=== PATIENT | male | born 2000 | race Caucasian/White ===

== ENCOUNTER 2021-04-07 17:06 | Emergency (ER) | payer SELFPAY ==
[2021-04-07 17:27] VITALS: BP 110/71; PULSE 88; RESP 16; TEMP 36.9; O2SAT 100
--- NOTE | 2021-04-07 20:31 | PC.NURSE ---
Patient's named called multiple times in triage, no response.
== END 2021-04-07 20:31 | disposition left against medical advice (07) ==
LOC: ANHED 20:44
DX: R21 Rash and other nonspecific skin eruption (principal)
CPT/HCPCS: 99199

== ENCOUNTER 2021-07-26 00:26 | Emergency (ER) | payer SELFPAY ==
[2021-07-26 00:34] VITALS: BP 136/85; PULSE 102; RESP 17; TEMP 36.8; O2SAT 99
--- NOTE | 2021-07-26 00:50 | ED.ABDPAIN ---
HPI - Abdominal Pain General Chief Complaint: Abdominal Pain Stated Complaint: right abd pain x 2 days Time Seen by Provider: 07/26/21 00:30 Source: patient and RN notes reviewed Mode of arrival: ambulatory Limitations: no limitations History of Present Illness HPI narrative: This is a 20 year old male who presents for evaluation of right flank pain. He developed epigastric abdominal pain 2 days ago, and now his pain has moved to his right abdomen. He is concerned he may have acute appendicitis. He is also complaining of right buttock pain. He denies nausea, vomiting, fever, chills, diarrhea, dysuria, hematuria or testicular pain. He has not taken anything for pain. Related Data Allergies Allergy/AdvReac Type Severity Reaction Status Date / Time No Known Allergies Allergy Verified 07/26/21 00:39 Review of Systems Review of Systems: All systems reviewed & are unremarkable except as noted in HPI and below PMFSH Past Medical History Medical History (Updated 07/26/21 @ 01:18 by Jayde Ortega MD) Patient denies medical problems Surgical History Surgical History (Updated 07/26/21 @ 00:51 by Jayde Ortega MD) Hx of tonsillectomy Social History Social History (Updated 07/26/21 @ 00:51 by Jayde Ortega MD) Smoking packs per day: 0.5 Smoking cigarettes per day: 10.0 Smoking status: Current every day smoker Alcohol intake: never Substance use: current Substance use type: marijuana Exam Const: General: alert Orientation/consciousness: patient oriented x3 Eyes: EOM: EOMs intact bilaterally Chest: Chest palpation & inspection: normal inspection of the chest Resp: Effort & Inspection: normal respiratory effort and no retractions Auscultation: clear to auscultation bilaterally Cardio: Rate: regular rate Rhythm: regular rhythm Heart sounds: no murmurs GI: GI Palp: Yes Soft to palpation, Yes Tenderness to palpation present (GI) (RLQ, right lower back) and No Guarding due to palpation present (GI) Auscultation: normal bowel sounds Back/Spine/Pelvis: Back: no CVA tenderness Skin: General skin exam: normal color Rashes: no rashes Neuro: General: patient oriented x3, moves all extremities and CN's II-XI intact bilaterally Extrem: General: normal to inspection Psych: Mental Status: mental status grossly normal Affect: normal affect Course Reevaluation(s) Reevaluation #1: Patient refused IV and labs draw to be done. I spoke to patient and I explained he needs these things to be done to rule out appendicitis. I explained risk of refusal to complete testing to rule out appendicitis. I Discussed risk of , sepsis, worsening infection. He initially agreed to but now he is refusing again. He is signing AMA. Date: 07/26/21 Time: 01:16 Vital Signs Vital signs: Vital Signs Temperature 98.3 F 07/26/21 00:34 Pulse Rate 102 H 07/26/21 00:34 Respiratory Rate 17 07/26/21 00:34 Blood Pressure 136/85 07/26/21 00:34 Pulse Oximetry 99 07/26/21 00:34 Temperature 98.3 F 07/26/21 00:34 Pulse Rate 102 H 07/26/21 00:34 Respiratory Rate 17 07/26/21 00:34 Blood Pressure 136/85 07/26/21 00:34 Pulse Oximetry 99 07/26/21 00:34 Discharge Plan Discharge Clinical Impression: Acute abdominal pain in right flank Patient Disposition: Left Against Medical Advice Condition: Guarded Prognosis Instructions: Antibiotic Form Follow-up/Referrals: PHYSICIAN,[facility] [Primary Care Provider] -
--- NOTE | 2021-07-26 01:22 | PC.NURSE ---
pt's friend called for ride after pt ambulated unassisted to ED WR, and primary nurse reported pt left AMA.
--- NOTE | 2021-07-26 01:37 | PC.NURSE ---
When this RN originally went in to the pt room another RN was helping get him checked in. At this time the pt was refusing an IV. This RN let registration register the pt and went back in. Pt still refused IV and blood draw. This RN explained the importance of IV and labs for his care. Pt still refused. Dr. Ortega again reiterated the importance of labs and IV to pt and he tentatively agreed. When I tried to start IV pt again refused for the third time saying he wanted to sign out AMA. EDP explained risks of signing out and this RN reiterated that if the pt did in fact have appendicitis the risks of him leaving could include . Pt still wishes to sign out against medical advice.
== END 2021-07-26 01:41 | disposition left against medical advice (07) ==
PROVIDERS: Emergency Provider General Practice
DX: R10.9 Unspecified abdominal pain (principal); F17.210 Nicotine dependence, cigarettes, uncomplicated
CPT/HCPCS: 99281

== ENCOUNTER 2021-07-26 12:28 | Emergency (ER) | payer SELFPAY ==
[2021-07-26 12:35] VITALS: BP 155/100; PULSE 100; RESP 16; TEMP 36.7; O2SAT 98
--- NOTE | 2021-07-26 12:39 | ED.ABDPAIN ---
HPI - Abdominal Pain General Chief Complaint: Abdominal Pain Stated Complaint: appendix? Time Seen by Provider: 07/26/21 12:31 History of Present Illness HPI narrative: Patient is a 20-year-old male who presents ER with epigastric and right-sided abdominal pain. Reports 2 days ago he started having pain in his upper abdomen/lower chest that is moved down to the right side. Reports is just inferior to his ribs. No associated with eating or drinking. Its worse with moving and twisting. Denies diarrhea/fever/chills/sweats. She came to the emergency room last night but left AGAINST MEDICAL ADVICE without receiving any care because he did not want to be poked with a needle to have lab work drawn. Patient reports he did in fact smoked marijuana prior to arrival here. He initially denied using cocaine but then changed course and reports that he uses cocaine regularly. He is not having active chest pain at this time. No difficulty breathing. Related Data Allergies Allergy/AdvReac Type Severity Reaction Status Date / Time No Known Allergies Allergy Verified 07/26/21 00:39 Review of Systems Review of Systems: All systems reviewed & are unremarkable except as noted in HPI and below Constitutional: Constitutional: Denies chills, Denies fever(s) and Denies weakness ENT: Denies nasal congestion and Denies sore throat Cardiovascular: Cardiovascular: Denies chest pain, Denies rapid heart rate and Denies radiating jaw, neck or arm pain Respiratory: Respiratory: Denies cough, Denies dyspnea and Denies wheezing Gastrointestinal: Gastrointestinal: Reports abdominal pain, Denies diarrhea, Denies nausea and Denies vomiting PMFSH Past Medical History Medical History (Updated 07/26/21 @ 13:16 by Akash Lockhart MD) Patient denies medical problems Surgical History Surgical History (Updated 07/26/21 @ 00:51 by Jayde Ortega MD) Hx of tonsillectomy Social History Social History (Updated 07/26/21 @ 13:13 by Akash Lockhart MD) Smoking packs per day: 0.5 Smoking cigarettes per day: 10.0 Smoking status: Current every day smoker Alcohol intake: never Substance use: current Substance use type: marijuana and crack/cocaine Exam Narrative: GENERAL: Well-nourished young man sitting up in bed crying. Strong smell of marijuana in the room. HEAD: Normocephalic, atraumatic. EYES: PERRL and EOMI. ENT: Mucous membranes moist. White powder within the nose bilaterally. CHEST: Clear to auscultation. No respiratory distress. HEART: Regular rate and rhythm. Normal peripheral pulses. ABDOMEN: Soft, mild tenderness palpation right upper quadrant without guarding, no tenderness to McBurney's point, nondistended, normal active bowel sounds. EXTREMITIES: Normal range of motion. No edema. SKIN: Warm, dry, no rash. NEURO: Alert and oriented x3. Course Course Emergency Course: Patient once again refused to have an IV stick or lab work performed. He continues to cry in the room. Discussed that we do emphatically that he has genuine concern about his abdomen and that we need to thoroughly evaluate him with blood work and likely CT that would be best to have contrast that goes in through an IV. Discussed that if he does not fact have appendicitis and ruptures he will have multiple procedures and that this could be a risk to his long-term health including . Patient states he is likely just going to leave. I have asked him to stay in the room to think about this decision and I will readdress it. After leaving the room to see another patient patient stood up and walked out of the hospital before he could sign any AMA paperwork. Vital Signs Vital signs: Vital Signs Temperature 98.1 F 07/26/21 12:35 Pulse Rate 100 07/26/21 12:35 Respiratory Rate 16 07/26/21 12:35 Blood Pressure 155/100 H 07/26/21 12:35 Pulse Oximetry 98 07/26/21 12:35 Temperature 98.1 F 07/26/21 12:35 Pulse Rate 100 07/26/21 12:35 Respiratory Rate
--- NOTE | 2021-07-26 12:52 | PC.NURSE ---
Patient refusing IV and blood draw. Patient crying in room stating, it's going to hurt.
--- NOTE | 2021-07-26 13:11 | PC.NURSE ---
Patient seen ambulating out of ED by intake nurse with all belongings and with a steady gait.
== END 2021-07-26 13:12 | disposition left against medical advice (07) ==
PROVIDERS: Emergency Provider Emergency Medicine; PCP Family Medicine
DX: R10.9 Unspecified abdominal pain (principal); F14.10 Cocaine abuse, uncomplicated; F17.210 Nicotine dependence, cigarettes, uncomplicated
CPT/HCPCS: 99283

== ENCOUNTER 2021-08-29 14:52 | Emergency (ER) | payer SELFPAY ==
[2021-08-29 15:06] VITALS: BP 128/60; PULSE 90; RESP 19; TEMP 37.3; O2SAT 100
--- NOTE | 2021-08-29 16:46 | PC.NURSE ---
when calling pt to go back to a room pt refused. pt asked where is my brother, how long is this going to take? I won't come back here unless I'm fucking pt walked out with no difficulty.
== END 2021-08-29 15:06 | disposition left against medical advice (07) ==
PROVIDERS: PCP Family Medicine
DX: R51.9 Headache, unspecified (principal)
CPT/HCPCS: 99199